=== PATIENT | female | born 1960 | race Caucasian/White ===

== ENCOUNTER → 2022-12-03 14:16 | Outpatient (BNVA) | payer MEDICARE, MEDICAID, SELFPAY | PROVIDERS: Family Provider Physician Assistant; PCP Family Medicine; Visit Provider Internal Medicine Pulmonary Disease | DX: R06.02 Shortness of breath (principal); J30.2 Other seasonal allergic rhinitis; F17.210 Nicotine dependence, cigarettes, uncomplicated; Z12.2 Encounter for screening for malignant neoplasm of respiratory organs; Z71.6 Tobacco abuse counseling; E66.2 Morbid (severe) obesity with alveolar hypoventilation; Z68.43 Body mass index [BMI] 50.0-59.9, adult | CPT/HCPCS: 36415; 82785; 86003; 99204 ==

== ENCOUNTER 2023-01-15 11:33 | Outpatient (CLI) | payer MEDICARE, MEDICAID, SELFPAY ==
--- NOTE | 2023-01-15 12:15 | CT_ITS ---
WS: [email or web address] LDCT LUNG CANCER SCREENING TECHNIQUE: Noncontrast CT of the chest with coronal and sagittal reformatted images. CLINICAL INFORMATION: Cancer Screen COMPARISON: None. DLP: 188.30 mGy.cm DIvol: Mean CTDIvol: 4.90 (mGy) All CT scans at [facility] use at least one of these dose optimization techniques: automat ed exposure control; mA and/or kV adjustment per patient size (includes targeted exams where dose is matched to clinical indication); or iterative reconstruction. FINDINGS: Nodular RIGHT thyroid. Aortic calcification. Coronary calcification. Normal caliber thoracic aorta. N o mediastinal or hilar lymphadenopathy. No axillary lymphadenopathy. Adrenal glands are normal. Normal GE junction. Partially visualized small exophytic renal cyst measur ing 2.0 cm.. IMPRESSION: Nodular RIGHT greater than LEFT thyroid. This can be followed up with ultrasound thyroid. CT/CT lung screening [id number] LUNG-RADS: 1S-Negative with Significant Findings FOLLOW UP: 12 Month: Continue annual screening with LDCT
[2023-01-15 12:58] VITALS: PULSE 70; RESP 20; O2SAT 98
[2023-01-15 13:03] VITALS: PULSE 74
[2023-01-15] MEDS: albuterol 2.5 mg/3 mL Neb INHALATION (13:03)
[2023-01-15 13:26] LABS: ABG PCO2 41.2 mmHg (35-45); ABG PH Result 7.45 (7.35-7.45); Alveolar-Arterial Oxygen Gradi 3.5 mmHg (5-10); Arterial Blood Gas Hematocrit 47.3 % (37-47); Base Excess ABG 3.8 mmol/L (-2.0-2.0); Blood Gas Allen Test Pos; Blood Gas Operator Identificat BROMA; Blood Gas Sample Site Radial, left; Blood Gas Sample Type Arterial; Carboxyhemoglobin 6.4 %THgb (0.4-20.1); HCO3 ABG 28.3 mmol/L (22-26); HGB O2 Sat 89.8 % (95-100); Ionized Calcium Level - ABG 1.2 mmol/L (1.1-1.4); Methemoglobin 0.3 % (0.4-1.5); Oxygen Device ROOM AIR; Oxygen Saturation ABG 96.3; PO2 ABG 73.1 mmHg (80.0-100.0); PO2 FiO2 Ratio Arterial Blood 0; Potassium Level - ABG 3.8 mmol/L (3.5-5.0); Total Hemoglobin 15.4 g/dL (12-16)
== END 2023-01-15 11:34 | disposition home or self-care (01) ==
LOC: RAD 11:33
PROVIDERS: Family Provider Physician Assistant; PCP Family Medicine; Visit Provider Internal Medicine Pulmonary Disease
DX: Z12.2 Encounter for screening for malignant neoplasm of respiratory organs (principal); F17.210 Nicotine dependence, cigarettes, uncomplicated; R06.02 Shortness of breath; R94.2 Abnormal results of pulmonary function studies
CPT/HCPCS: 71271; 80051; 82330; 82805; 94060; 94618; 94726; 94729; J7613

== ENCOUNTER → 2023-01-25 11:00 | Outpatient (BNVA) | payer MEDICARE, MEDICAID, SELFPAY | PROVIDERS: Family Provider Physician Assistant; PCP Family Medicine; Visit Provider Internal Medicine Pulmonary Disease | DX: J44.9 Chronic obstructive pulmonary disease, unspecified (principal); Z12.2 Encounter for screening for malignant neoplasm of respiratory organs; Z71.6 Tobacco abuse counseling; E04.1 Nontoxic single thyroid nodule; F17.210 Nicotine dependence, cigarettes, uncomplicated | CPT/HCPCS: 99214 ==

== ENCOUNTER → 2023-07-30 10:50 | Outpatient (BNVA) | payer MEDICARE, MEDICAID, SELFPAY | PROVIDERS: Family Provider Physician Assistant; PCP Family Medicine; Visit Provider Internal Medicine Pulmonary Disease | DX: J44.9 Chronic obstructive pulmonary disease, unspecified (principal); Z12.2 Encounter for screening for malignant neoplasm of respiratory organs; Z71.6 Tobacco abuse counseling; F17.210 Nicotine dependence, cigarettes, uncomplicated | CPT/HCPCS: 99214 ==

== ENCOUNTER → 2023-08-01 09:36 | Outpatient (BNVA) | payer MEDICARE, MEDICAID, SELFPAY | PROVIDERS: Family Provider Physician Assistant; PCP Family Medicine; Visit Provider Family Medicine | DX: I10 Essential (primary) hypertension (principal); E04.1 Nontoxic single thyroid nodule; E66.9 Obesity, unspecified; J44.9 Chronic obstructive pulmonary disease, unspecified; R06.89 Other abnormalities of breathing; R73.9 Hyperglycemia, unspecified; E55.9 Vitamin D deficiency, unspecified; E66.01 Morbid (severe) obesity due to excess calories; Z68.43 Body mass index [BMI] 50.0-59.9, adult; R60.0 Localized edema | CPT/HCPCS: 80053; 80061; 82306; 82607; 83036; 83735; 84443; 85025 ==

== ENCOUNTER 2023-09-04 09:00 | Outpatient (CLI) | payer MEDICARE, MEDICAID, SELFPAY ==
--- NOTE | 2023-09-04 09:00 | MM_ITS ---
WS: [email or web address] BILATERAL SCREENING DIGITAL TOMOSYNTHESIS MAMMOGRAM WITH CAD HISTORY: Z12.31 - Encounter for screening mammogram for malignant ... COMPARISON: 04/30/2007 Bilateral CC and MLO views with tomosynthesis and synthetic mammography submitted. Computer aided det ection analyzed. Breast composition: There are scattered areas of fibroglandular density. No suspicious masses, microc alcifications or architectural distortion. Reidentified slightly lobulated 8 mm mass in the central L EFT breast was also present in 2007 without increase in size. Stable appearing axillary lymph nodes. Benign calcifications. MM/[place] [id number] IMPRESSION: BI-RADS: 2-Benign FOLLOW UP: 1 Year Follow-up
== END 2023-09-04 09:01 | disposition home or self-care (01) ==
PROVIDERS: PCP Family Medicine; Visit Provider Family Medicine
DX: Z12.31 Encounter for screening mammogram for malignant neoplasm of breast (principal); R92.323 Mammographic fibroglandular density, bilateral breasts; N63.20 Unspecified lump in the left breast, unspecified quadrant; R92.1 Mammographic calcification found on diagnostic imaging of breast
CPT/HCPCS: 77063; 77067

== ENCOUNTER → 2024-01-08 12:56 | Outpatient (BNVA) | payer MEDICARE, MEDICAID, SELFPAY | PROVIDERS: PCP Family Medicine; Visit Provider Nurse Practitioner Family | DX: R07.89 Other chest pain (principal) | CPT/HCPCS: 93005 ==

== ENCOUNTER 2024-03-23 11:52 | Outpatient (CLI) | payer MEDICARE, MEDICAID, SELFPAY ==
--- NOTE | 2024-03-23 12:30 | CT_ITS ---
WS: [email or web address] LDCT LUNG CANCER SCREENING HISTORY: Lung cancer screening TECHNIQUE: Axial imaging performed from the apices to 1 cm below the costophrenic angles. Coronal and sagittal reformats are submitted with axial MIP series. All CT scans at [facility] use at least one of these dose optimization techniques: automated exposure control; mA and/or kV adjustment per patient size (includes targeted exams where dose is matched to clinical indication); or iterativ e reconstruction. DLP: 201.31 mGy.cm DIvol: Mean CTDIvol: 5.30 (mGy) COMPARISON: 01/15/2023 Diagnostic quality: Satisfactory Lungs: Lung volumes are decreased due to poor inspiration. No pulmonary mass, nodule or pneumonia. No endobronchial lesions. Heart: Normal size heart with no pericardial effusion.. Other findings: Mild pulmonary artery enlargement. Mild atherosclerosis aorta. Small mediastinal and hilar lymph nodes. Mildly prominent thyroid. 2.1 x 1.6 LEFT adrenal adenoma. Exophytic cyst LEFT kidn ey 2.1 cm. Mild increase in thoracic kyphosis. Benign partially calcified subcutaneous soft tissue no dules posterior LEFT lower thorax. CT/CT lung screening [id number] IMPRESSION: LUNG-RADS: 1-Negative FOLLOW UP: 12 Month: Continue annual screening with LDCT OTHER FINDINGS (S MODIFIER): None.
== END 2024-03-23 11:53 | disposition home or self-care (01) ==
PROVIDERS: PCP Family Medicine; Visit Provider Family Medicine
DX: Z12.2 Encounter for screening for malignant neoplasm of respiratory organs (principal); F17.210 Nicotine dependence, cigarettes, uncomplicated; R91.8 Other nonspecific abnormal finding of lung field; I77.89 Other specified disorders of arteries and arterioles; I28.9 Disease of pulmonary vessels, unspecified; I70.0 Atherosclerosis of aorta; R59.0 Localized enlarged lymph nodes; D35.02 Benign neoplasm of left adrenal gland; N28.1 Cyst of kidney, acquired; M40.294 Other kyphosis, thoracic region; R93.5 Abnormal findings on diagnostic imaging of other abdominal regions, including retroperitoneum
CPT/HCPCS: 71271

== ENCOUNTER → 2024-03-25 12:01 | Outpatient (BNVA) | payer MEDICARE, MEDICAID, SELFPAY | PROVIDERS: PCP Family Medicine; Visit Provider Nurse Practitioner Family | DX: R50.9 Fever, unspecified (principal) | CPT/HCPCS: 87400; 87426 ==

== ENCOUNTER → 2024-04-20 11:21 | Outpatient (BNVA) | payer MEDICARE, MEDICAID, SELFPAY | PROVIDERS: PCP Family Medicine; Visit Provider Family Medicine | DX: R30.9 Painful micturition, unspecified (principal); I10 Essential (primary) hypertension; E04.1 Nontoxic single thyroid nodule; N28.1 Cyst of kidney, acquired; N28.89 Other specified disorders of kidney and ureter; J44.9 Chronic obstructive pulmonary disease, unspecified | CPT/HCPCS: 80053; 80061; 81000; 82306; 82607; 83036; 83735; 84439; 84443; 85025 ==

== ENCOUNTER 2024-05-07 15:37 | Outpatient (CLI) | payer MEDICARE, MEDICAID, SELFPAY ==
--- NOTE | 2024-05-07 16:00 | CTR_ITS ---
PROCEDURE INFORMATION: Exam: CT Abdomen And Pelvis With Contrast Exam date and time: 05/07/2024 4:02 PM Age: 63 years old Clinical indication: Condition or disease; Kidney or ureter condition; Cyst of kidney; Prior surgery; Surgery date: 6+ months; Surgery type: Tubal, appy; Additional info: N28.1 - cyst of kidney, acquired TECHNIQUE: Imaging protocol: Computed tomography of the abdomen and pelvis with contrast. Radiation optimization: All CT scans at this facility use at least one of these dose optimization techniques: automated exposure control; mA and/or kV adjustment per patient size (includes targeted exams where dose is matched to clinical indication); or iterative reconstruction. Contrast material: OMNI 350; Contrast volume: 100 ml; Contrast route: INTRAVENOUS (IV); COMPARISON: CT lung screening [id number] 03/23/2024 12:01 PM RADIATION DOSE METRICS: Total DLP (mGy-cm): 1468.17 FINDINGS: Liver: Normal. No mass. Gallbladder and biliary ducts: Normal. No calcified stones. No ductal dilation. Pancreas: Normal. No ductal dilation. Spleen: Normal. No splenomegaly. Adrenal glands: Normal. No mass. Kidneys and ureters: An exophytic 2.3 cm left renal cyst is larger than before, previously 1.5 cm. A 19 mm left lower pole cyst appears slightly complex and has newly formed. Ultrasound or MRI recommended for further evaluation. Stomach and bowel: Unremarkable. No obstruction. No mucosal thickening. Appendix: No evidence of appendicitis. Intraperitoneal space: Unremarkable. No free air. No significant fluid collection. Vasculature: Unremarkable. No abdominal aortic aneurysm. Lymph nodes: Unremarkable. No enlarged lymph nodes. Urinary bladder: Unremarkable as visualized. Reproductive: Unremarkable as visualized. Bones/joints: Bilateral L5 spondylolysis with mild spondylolisthesis and focal degenerative disc disease. Soft tissues: Unremarkable. CT/CT abdomen pelvis w con* [id number] IMPRESSION: 2 left renal lesions, each is probably a cyst but 1 has enlarged slightly in the other is new and slightly complex in appearance. Ultrasound or MRI recommended for further evaluation. COMMENTS: Consistent with the [employer]'s Incidental Findings Committee white paper (J Am [employer]iol 2018): Any incidental renal lesion less than 1 cm or classified as too small to characterize, or any incidental cystic renal lesion characterized as simple-appearing, is likely benign. No follow-up imaging is recommended for these lesions per consensus recommendations based on imaging criteria.
[2024-05-07] MEDS: iohexol 350 mg/mL 500 mL Btl (per mL) IV (16:33)
== END 2024-05-07 15:38 | disposition home or self-care (01) ==
LOC: RAD 15:39
PROVIDERS: PCP Family Medicine; Visit Provider Family Medicine
DX: N28.1 Cyst of kidney, acquired (principal); N28.89 Other specified disorders of kidney and ureter; M43.06 Spondylolysis, lumbar region; M51.369 Other intervertebral disc degeneration, lumbar region without mention of lumbar back pain or lower extremity pain
CPT/HCPCS: 74177

== ENCOUNTER 2024-05-26 13:09 | Outpatient (CLI) | payer MEDICARE, MEDICAID, SELFPAY ==
--- NOTE | 2024-05-26 13:30 | US_ITS ---
WS: [id number] RENAL ULTRASOUND HISTORY: N28.1 - Cyst of kidney, acquired COMPARISON: CT 05/07/2024 TECHNIQUE: 2-D and color Doppler imaging of the kidney submitted. Right kidney: 9.8 cm x 5.8 cm x 4.7 cm. Cortex: 1.0 cm Normal echogenicity with no hydronephrosis or mass. Left kidney: 11.5 cm x 5.5 cm x 5.5 cm. Cortex: 1.2 cm Normal size kidney. Exophytic cyst superior pole measures 1.9 x 1.7 x 1.7 cm. Cortical cyst lower pole 1.6 x 1.5 x 1.5 cm. No obstruction. Aorta: Normal. Urinary Bladder: Minimally distended. US/US renal BI* [id number] IMPRESSION: 1. LEFT renal cyst x2. No solid mass. 2. No renal atrophy or obstruction.
== END 2024-05-26 13:10 | disposition home or self-care (01) ==
PROVIDERS: PCP Family Medicine; Visit Provider Family Medicine
DX: N28.1 Cyst of kidney, acquired (principal)
CPT/HCPCS: 76770

== ENCOUNTER → 2024-08-05 13:00 | Outpatient (BNVA) | payer MEDICARE, MEDICAID, SELFPAY | PROVIDERS: PCP Family Medicine; Visit Provider Nurse Practitioner Family | DX: E11.9 Type 2 diabetes mellitus without complications (principal); Z12.4 Encounter for screening for malignant neoplasm of cervix | CPT/HCPCS: 83036; 88175 ==

== ENCOUNTER 2024-10-07 10:01 | Outpatient (CLI) | payer MEDICARE, MEDICAID, SELFPAY ==
--- NOTE | 2024-10-07 10:00 | MM_ITS ---
WS: [email or web address] BILATERAL 3D TOMOSYNTHESIS DIGITAL SCREENING MAMMOGRAPHY WITH CAD CLINICAL INFORMATION: Z12.39 - Encounter for other screening for malignant neop... HISTORY: Screening mammogram. No current complaints. COMPARISON: 2023 TECHNIQUE: Bilateral CC and MLO views. FINDINGS: Scattered fibroglandular densities bilaterally. No suspicious focal mass, asymmetry, calcifications, or architectural distortion. No evidence of malignancy. A few incidental punctate calcifications. Long-term stability small ovoid nodule central LEFT breast MM/MM scr tomosynthesis [id number] IMPRESSION: DENSITY: There are scattered areas of fibroglandular density. BI-RADS: 2 - Benign. FOLLOW UP: 1 Year Follow-up Recommend return to annual screening mammography.
== END 2024-10-07 10:02 | disposition home or self-care (01) ==
LOC: MOBLMAM 10:04
PROVIDERS: PCP Nurse Practitioner Family; Visit Provider Nurse Practitioner Family
DX: Z12.31 Encounter for screening mammogram for malignant neoplasm of breast (principal); R92.323 Mammographic fibroglandular density, bilateral breasts; R92.1 Mammographic calcification found on diagnostic imaging of breast; N63.20 Unspecified lump in the left breast, unspecified quadrant
CPT/HCPCS: 77063; 77067

== ENCOUNTER → 2024-11-04 08:45 | Outpatient (BNVA) | payer MEDICARE, MEDICAID, SELFPAY | PROVIDERS: PCP Nurse Practitioner Family; Visit Provider Nurse Practitioner Family | DX: E55.9 Vitamin D deficiency, unspecified (principal); I10 Essential (primary) hypertension; Z86.2 Personal history of diseases of the blood and blood-forming organs and certain disorders involving the immune mechanism; E11.9 Type 2 diabetes mellitus without complications; E53.8 Deficiency of other specified B group vitamins | CPT/HCPCS: 80053; 80061; 82306; 82607; 82728; 83036; 83550; 85025 ==

== ENCOUNTER 2024-12-04 09:07 | Outpatient (CLI) | payer MEDICARE, MEDICAID, SELFPAY ==
--- NOTE | 2024-12-04 09:30 | US_ITS ---
WS: [email or web address] RENAL ULTRASOUND HISTORY: N28.1 - Cyst of kidney, acquired COMPARISON: 05/26/2024, 05/07/2024 TECHNIQUE: 2-D and color Doppler imaging of the kidney submitted. Right kidney: 10.3 cm x 5.7 cm x 5.9 cm. Cortex: 1.0 cm Normal echogenicity with no hydronephrosis or mass. Left kidney: 12.0 cm x 6.1 cm x 6.2 cm. Cortex: 1.2 cm Cortical cyst superior pole 1.7 x 1.8 x 1.4 cm. Previously described cyst from the lower pole is not identified. No hydronephrosis. No solid mass. Aorta: Normal. Urinary Bladder: Normal distention. US/US renal BI* [id number] IMPRESSION: 1. No renal obstruction or solid mass identified. 2. Quality is compromised by patient's body habitus. 3. Previously described cyst from the lower pole LEFT kidney is not identified today. 4. Stable cortical cyst upper pole LEFT kidney at 1.8 cm.
== END 2024-12-04 09:08 | disposition home or self-care (01) ==
LOC: RAD 09:09
PROVIDERS: PCP Family Medicine; Visit Provider Nurse Practitioner Family
DX: N28.1 Cyst of kidney, acquired (principal)
CPT/HCPCS: 76770

== ENCOUNTER → 2024-12-24 09:46 | Outpatient (BNVA) | payer MEDICARE, MEDICAID, SELFPAY | PROVIDERS: PCP Family Medicine; Visit Provider Student in an Organized Health Care Education/Training Program | DX: Z12.11 Encounter for screening for malignant neoplasm of colon (principal) | CPT/HCPCS: 99204 ==

== ENCOUNTER 2025-01-19 07:31 | Day surgery (SDC) | payer MEDICARE, MEDICAID, SELFPAY ==
[2025-01-19 08:03] VITALS: BP 166/91; PULSE 88; RESP 20; TEMP 36.9; O2SAT 95; BMI 59.3
--- NOTE | 2025-01-19 08:16 | ANES.PREANE2 ---
Pre-Anesthetic Assessment Height/Weight: Height 1.6 m Weight 151.953 kg Temp Pulse Resp BP Pulse Ox O2 Del Method 98.4 F 88 20 H 166/91 95 Room Air 01/19/25 08:03 01/19/25 08:03 01/19/25 08:03 01/19/25 08:03 01/19/25 08:03 01/19/25 08:03 Operation Date: 01/19/25 09:00 Proposed Procedures p Colonoscopy [id number] Z12.11(Not Applicable) - Seng Fragoso MD Familial anesthetic complications: None Was Beta Caden taken within 24 hours: N/A Was Clonidine taken within 24 hours: N/A Last intake: Intake Last Liquid Date 01/18/25 Last Liquid Time 23:00 Last Solid Date 01/17/25 Last Solid Time 17:00 Social Tobacco and No alcohol 15-18 ciggs/day pack(s) per day 53 pack years Exam alert, oriented x 3, clear to auscultation bilaterally and regular rate & rhythm Airway Submandibular: within normal limits Cervical ROM: within normal limits Mallampati: Class III Comments: Comments: Several missing, a rotten top left tooth, denies any loose History/ROS No significant history except as noted and No significant complaints Pulmonary Chronic Obstructive Pulmonary Disease, Cough and Exertional Dyspnea CV/HEM Anemia (As a child, no issues as an adult), Coronary Artery Disease and Hypertension Left renal cyst UTIs as a child Hepatic None reported GI None reported Metabolic Diabetes Mellitus, Morbid Obesity and Thyroid Disease (Benign nodules) Musc/skel Lower Back Pain, Osteoarthritis/DJD and Rheumatoid Arthritis Neuropsych Neuropathy Anesthetic Plan ASA status: 3 Anesthesia: Anesthesia Evaluation, General and MAC Risk of > 500 ml blood loss (7ml/kg in children): No Medications/Allergies Home Medications ?Medication ?Instructions ?Recorded ?Confirmed ?Last Taken ?Type aspirin 81 mg tablet,delayed 81 mg PO DAILY 12/03/22 01/19/25 01/11/25 History release magnesium oxide 500 mg capsule 1,000 mg PO DAILY 12/03/22 01/19/25 01/11/25 History fluticasone propionate 50 2 spray intranasal DAILY #16 grams 11/06/23 01/19/25 01/11/25 Rx mcg/actuation nasal spray,suspension (Flonase Allergy Relief) cetirizine 10 mg tablet (24Hour 10 mg PO DAILY PRN Allergy Symptoms 04/20/24 01/19/25 Unknown History Allergy) cholecalciferol (vitamin D3) 50 50 mcg PO DAILY 04/20/24 01/19/25 01/11/25 History mcg (2,000 unit) capsule hydrochlorothiazide 50 mg tablet 50 mg PO BID #180 tabs 04/20/24 01/19/25 01/19/25 Rx metformin 500 mg tablet 500 mg PO BIDWMEAL 90 days #180 11/09/24 01/19/25 01/11/25 Rx tabs albuterol sulfate 90 mcg/actuation 2 puff inhalation Q6H PRN 01/11/25 01/19/25 Unknown History aerosol inhaler Shortness Of Breath Or Wheezing amlodipine 5 mg tablet 5 mg PO DAILY 01/11/25 01/19/25 01/19/25 History fluticasone propionate 230 2 puff inhalation BID 01/11/25 01/19/25 01/19/25 History mcg-salmeterol 21 mcg/actuation HFA inhaler (Advair HFA) furosemide 40 mg tablet 40 mg PO DAILY 01/11/25 01/19/25 01/11/25 History losartan 50 mg tablet 50 mg PO DAILY 01/11/25 01/19/25 01/11/25 History potassium chloride 10 mEq 10 meq PO DAILY 01/18/25 01/19/25 01/18/25 History tablet,extended release Allergies Allergy/AdvReac Type Severity Reaction Status Date / Time budesonide (From Symbicort) Allergy ADR-Headach Verified 01/19/25 08:01 e formoterol (From Symbicort) Allergy ADR-Headach Verified 01/19/25 08:01 e Quinolones Allergy Unknown Verified 01/19/25 08:01 [facility] Anesthesia Medical History (Updated 12/18/24 @ 12:10 by Aletha Coronel NP) Other fatigue Obesity, unspecified Essential (primary) hypertension Shortness of breath Chronic obstructive pulmonary disease, unspecified Social History Smoking and tobacco/nicotine status: current every day tobacco/nicotine user cigarettes Packs smoked per day: 1.5 Years cigarettes smoked: 51 [ Other cigarette details: Started 1971] Alcohol intake: current Alcohol intake frequency: holidays/special occasions only Substance/Drug Use: never Female Reproductive History Spontaneous abortions: No
--- NOTE | 2025-01-19 08:31 | W.PM.OPSUD ---
Surgery/Procedure H&P Update DATE OF PROCEDURE: January 19, 2025 DATE H&P PERFORMED: 12/24/24 H&P UPDATE INFORMATION: I have reviewed H&P completed within last 30 days, I have examined patient prior to procedure, No changes to prior documentation and Risks and benefits of the procedure reviewed PLANNED PROCEDURE: Operation Date: 01/19/25 09:00 Proposed Procedures p Colonoscopy [id number] G0105 Z12.11(Not Applicable) - Seng Fragoso MD
[2025-01-19 09:05] VITALS: BP 92/59; PULSE 80; RESP 18; TEMP 36.4; O2SAT 96
[2025-01-19 09:17] VITALS: BP 150/80; PULSE 75; TEMP 36.4; O2SAT 95
--- NOTE | 2025-01-19 09:30 | ANE.PACU2 ---
Inpatient post-anesthesia follow up: Airway intact: Yes Vital signs: Temperature 97.5 F Pulse Rate 75 Respiratory Rate 18 Blood Pressure 150/80 Pulse Oximetry 95 Oxygen Delivery Me thod Room Air Oxygen Flow Rate Fraction of Inspir ed Oxygen Hydration adequate: Yes Nausea and vomiting: No Pain level: 1 Mental status: Baseline
== END 2025-01-19 09:30 | disposition home or self-care (01) ==
PROVIDERS: PCP Family Medicine; Visit Provider Student in an Organized Health Care Education/Training Program
PROC: 0DJD8ZZ Inspection of Lower Intestinal Tract, Via Natural or Artificial Opening Endoscopic (ICD-10-PCS; CPT 45378; principal; 2025-01-19 09:00)
DX: Z12.11 Encounter for screening for malignant neoplasm of colon (principal); R19.5 Other fecal abnormalities; E11.9 Type 2 diabetes mellitus without complications; I25.10 Atherosclerotic heart disease of native coronary artery without angina pectoris; I10 Essential (primary) hypertension; Z79.82 Long term (current) use of aspirin; Z79.84 Long term (current) use of oral hypoglycemic drugs; E66.01 Morbid (severe) obesity due to excess calories; Z68.43 Body mass index [BMI] 50.0-59.9, adult; J44.9 Chronic obstructive pulmonary disease, unspecified; F17.210 Nicotine dependence, cigarettes, uncomplicated
CPT/HCPCS: 36416; 45385; 82962; J2704; J7030